=== PATIENT | male | born 1940 | race Caucasian/White ===

== ENCOUNTER 2016-09-25 18:05 | Inpatient (IN) | payer OTHER ==
[2016-09-25] MEDS ORDERED: NS 1,000 ML IV ONE (18:21)
--- NOTE | 2016-09-25 18:39 | EKG Report ---
Test Performed on : 09/25/2016 6:32:37 PM Test Reason : PREOP Blood Pressure : / mmHG Vent. Rate : 069 BPM Atrial Rate : 069 BPM P-R Int : 220 ms QRS Dur : 114 ms QT Int : 400 ms P-R-T Axes : 049 -37 052 degrees QTc Int : 428 ms Sinus rhythm. with 1st degree AV block. Left axis deviation Low voltage QRS Incomplete right bundle branch block Cannot rule out Anterior infarct , age undetermined Abnormal ECG When compared with ECG of 20-DEC-2014 08:30, Minimal criteria for Anterior infarct are now present Unconfirmed Result
[2016-09-25 18:52] LABS: MANUAL DIFF NEEDED? NO
[2016-09-25 18:58] LABS: BASO% 0.5 % (0.0-0.8); EOS# 0.09 X1000 (0.0-0.7); EOS% 1.1 % (0.0-10.0); HEMATOCRIT 40.4 % (42.0-52.0); IMM GRAN# 0.03 X1000 (0.0-0.04); IMM GRAN% 0.4 % (0.0-0.5); LYMPH# 1.75 X1000 (1.2-3.4); LYMPH% 20.6 % (20.5-51.1); MCH 28.9 PG (27-31); MCHC 34.7 g/dL (33-37); MCV 83.3 FL (81-99); MONO# 0.57 X1000 (0.11-0.59); MONO% 6.7 % (1.7-9.3); MPV 8.7 FL (7.4-10.4); NEUT% 70.7 % (42.2-75.2); PLT 218 X1000 (130-400); RBC 4.85 XMIL (4.7-6.1)
[2016-09-25] MEDS: ZOSYN 3.375 GM/NS 50 ML IV SCH ×2 (18:59→23:39)
[2016-09-25 19:18] LABS: HEMOGLOBIN A1C 5.3 % (4.8-6.0)
[2016-09-25 19:19] LABS: AGAP 11; ALBUMIN 4.3 g/dL (3.5-5.0); ALKALINE PHOSPHATASE 63 U/L (32-122); BUN 20 mg/dL (8-22); CALCIUM 9.3 mg/dL (8.8-10.2); CHLORIDE 103 mmol/L (98-107); COSMO 276; GOT 18 U/L (10-34); GPT 19 U/L (10-44); SODIUM 136 mmol/L (136-145); TCO2 22 mmol/L (25-35); TOTAL PROTEIN 7.2 g/dL (6.3-8.3)
[2016-09-25 20:26] LABS: SED RATE 24 mm/hr (0-15)
[2016-09-26] MEDS: ZOSYN 3.375 GM/NS 50 ML IV SCH ×3 (05:34→18:31)
--- NOTE | 2016-09-26 08:58 | Diag Imaging Result Document ---
PROCEDURE NAME: CHEST-2 VIEWS - 09/25/2016 TWO VIEWS OF THE CHEST: FINDINGS: There is a granuloma in the right costophrenic angle. There is some ill-defined opacity in the medial portion of the right lower lobe which may represent atelectasis or pneumonia. There are no previous studies available for comparison, however, and this may be a chronic finding. IMPRESSION: Questionable atelectasis in the medial right lower lobe.
[2016-09-26] MEDS ORDERED: DIPRIVAN 1% ONE (11:26)
[2016-09-26] MEDS ORDERED: FENTANYL ONE (11:26)
[2016-09-26] MEDS ORDERED: VERSED ONE (11:26)
--- NOTE | 2016-09-26 13:30 | HISTORY AND PHYSICAL ---
CHIEF COMPLAINT: Cellulitis right foot, failed outpatient treatment. HISTORY OF PRESENT ILLNESS: This is a 76-year-old male with a history of diabetes mellitus, hypertension, and hypothyroid who presented as a direct admit from Dr. Thakkar's office for cellulitis to his right lower extremity despite outpatient antibiotics and wound care per Dr. Thakkar. He does state that he has had some increase in swelling and redness. PAST MEDICAL HISTORY: Hypertension, hypothyroid, melanoma left arm status post chemotherapy in 2000, and BPH.. PAST SURGICAL HISTORY: Cholecystectomy, hemorrhoidectomy, excision of melanoma left arm. SOCIAL HISTORY: He denies alcohol, tobacco, or illicit drug use. He did quit smoking July 22. ALLERGIES: Nickel which causes hives and tape which causes blisters. HOME MEDICATIONS: A list will be obtained. REVIEW OF SYSTEMS: A 14-point review of systems is discussed with patient with pertinent positives being pain, swelling, redness, warmth to right foot. He denied chest pain, palpitations, syncope, dizziness, fever, chills, cough, any recent weight loss, weight gain, PND, orthopnea, nausea, vomiting, diarrhea, constipation, black or bloody vomitus, black or bloody stools, hematuria, dysuria, frequency, urgency. PHYSICAL EXAMINATION: GENERAL: This is a 76-year-old male who is sitting in the bed with no distress. VITAL SIGNS: Blood pressure is 136/63 with a heart rate of 65. Respirations are 18. Temperature is 98.2 degrees oral with room air saturations of 99%. HEENT: Head is normocephalic, atraumatic. Pupils equal, round, reactive to light. EOMs are intact. Sclerae anicteric. Mucous membranes are moist. NECK: Supple. Trachea midline. CARDIOVASCULAR: Regular rate and rhythm. S1, S2 appreciated. PULMONARY: Breath sounds are clear. No increased work of breathing noted. GASTROINTESTINAL: Abdomen is soft, nontender, nondistended with bowel sounds in all 4 quadrants. BACK: No CVAT. No spine tenderness. MUSCULOSKELETAL: Good range of motion of joints. EXTREMITIES: No clubbing, cyanosis, or edema to upper extremities and left lower extremity. Right lower extremity does have a dressing that is dry and intact. He does have reported redness and edema. Calves are nontender. SKIN: Warm and dry. ASSESSMENT: 1. Cellulitis, right foot. Failed outpatient treatment. 2. Hypothyroid. 3. Hypertension. 4. DVT prophylaxis. 5. GI prophylaxis. PLAN: He will be admitted to the hospital. We will obtain a CBC and CMP. We will identify and continue his home medications. We will start gentle IV hydration. We will start Zosyn q.[address] Thakkar with further instructions per hospital course and Dr. Thakkar's expertise. Dictated by HENRIK Regan for Kendrick Mccauley MD
[2016-09-26] MEDS ORDERED: LR 1,000 ML ONE (15:25)
[2016-09-26] MEDS ORDERED: HYDROGEN PEROXIDE SOLUTION ONE (15:26)
[2016-09-26] MEDS ORDERED: BACITRACIN ONE (15:26)
[2016-09-26] MEDS ORDERED: MARCAINE 0.5% ONE (15:26)
[2016-09-26] MEDS ORDERED: SODIUM CHLORIDE 0.9% 10 ML ONE (15:27)
[2016-09-26] MEDS ORDERED: EPHEDRINE ONE (16:19)
--- NOTE | 2016-09-26 16:29 | OPERATIVE NOTE ---
PROCEDURE DATE: 09/26/2016 PREOPERATIVE DIAGNOSIS: Infected right foot with cellulitis. POSTOPERATIVE DIAGNOSIS: Infected right foot with osteomyelitis of the 1st metatarsal head. PROCEDURE PERFORMED: Debridement of infected tissue and bone, right foot. SURGEON: Celio Thakkar DPM ANESTHESIA: General. HEMOSTASIS: Ankle tourniquet to 250 mmHg. PROCEDURE IN DETAIL: The patient was brought to operating room and placed on the table in a supine position. General anesthesia was then induced. The patient was then prepped and draped in the usual aseptic manner. The procedure was begun by examining the right foot and raising the ankle tourniquet to 250 mmHg. Two converging semi-elliptical incisions were used to excise the large ulcer on the medial aspect of the 1st metatarsophalangeal joint. This was then dissected down through the soft tissues and noted to entering into the 1st metatarsophalangeal joint, which was to be expected given the clinical signs preoperatively. The head of the 1st metatarsal, the articular surface actually looked fairly normal, although there was a deficit noted in the medial 1st metatarsal head, and a curette was used to remove a fair amount of soft cancellous bone within the 1st metatarsal head until good firm bone was obtained. The rest of the procedure involved removing any obviously infected and abnormal tissue. It should be noted there was no obvious pus noted throughout the procedures, just the drainage from the joint. We obtain cultures for C and S and Gram stain and also obtained some bony tissue for bone biopsy to confirm the osteomyelitis. The tourniquet was released. The wound was copiously irrigated with 3 liters of normal saline impregnated with bacitracin solution. The wound and the bone were packed with iodoform gauze, and a Betadine dressing was applied. Two retention sutures were placed in the distal and proximal aspect of the incision, and the wound was dressed. He tolerated the procedure and anesthesia well. He left the operating room with vital signs stable and CFT intact to the right foot, and he will be followed on the floor until discharge. Most likely, he will be return back to the operating room for closure.
[2016-09-26] MEDS ORDERED: ZOFRAN ONE (16:45)
[2016-09-26] MEDS ORDERED: XYLOCAINE-MPF 2% ONE (16:45)
[2016-09-27] MEDS: ZOSYN 3.375 GM/NS 50 ML IV SCH ×4 (01:20→17:57)
[2016-09-27 06:20] LABS: HEMATOCRIT 36.9 % (42.0-52.0); HEMOGLOBIN 12.3 g/dL (14.0-18.0); MCH 28.7 PG (27-31); MCHC 33.3 g/dL (33-37); MPV 9.1 FL (7.4-10.4); RBC 4.29 XMIL (4.7-6.1)
[2016-09-27] MEDS: PRILOSEC PO SCH (06:28)
[2016-09-27] MEDS: SYNTHROID PO SCH (06:28)
[2016-09-27 06:35] LABS: AGAP 8; BUN 17 mg/dL (8-22); CALCIUM 8.7 mg/dL (8.8-10.2); CHLORIDE 104 mmol/L (98-107); COSMO 276; POTASSIUM 4.4 mmol/L (3.5-5.1); SODIUM 137 mmol/L (136-145); TCO2 26 mmol/L (25-35)
--- NOTE | 2016-09-27 08:15 | PROGRESS NOTE ---
DATE: 09/27/2016 SUBJECTIVE: Patient notes that he is feeling better. He denies any current issues. States his pain is decently controlled. PHYSICAL EXAMINATION: Vital Signs: Temperature 99, pulse 65, respiratory rate 18, BP 136/58. General: Patient is a well developed, well nourished male who is currently in no respiratory distress. He is awake, alert, oriented. Neck: Supple. CV: Regular rate. Chest: Relatively clear. Abdomen: Soft. Extremities: Moves all extremities. Skin: He is noted to have a bandage on his right foot secondary to recent debridement of infected tissue and bone due to osteomyelitis of his first metatarsal head by Dr. Thakkar. LABS: CBC, and CMP essentially normal. Calcium at 8.7. ASSESSMENT: 1. Osteomyelitis of the first metatarsal head, right foot. 2. Hypothyroidism. 3. Hypertension. 4. Known history of benign prostatic hyperplasia. 5. No history of diabetes. PLAN: We will continue IV Zosyn. Continue to follow along with Dr. Thakkar and further orders as needed.
[2016-09-27] MEDS ORDERED: [UNRECOGNIZED DRUG - OTHER] PO SCH (09:00)
[2016-09-27] MEDS ORDERED: BENAZEPRIL PO SCH (09:00)
[2016-09-27] MEDS ORDERED: AMLODIPINE BESYLATE PO SCH (09:00)
[2016-09-27] MEDS: NORVASC PO SCH (09:22)
[2016-09-27] MEDS: LOTENSIN PO SCH (09:22)
[2016-09-27] MEDS: LOPRESSOR PO SCH (09:22)
[2016-09-27] MEDS ORDERED: NS 500 ML IV SCH (19:15)
[2016-09-28] MEDS: ZOSYN 3.375 GM/NS 50 ML IV SCH ×4 (01:02→18:26)
[2016-09-28 06:31] LABS: INR 1.09 (0.86-1.15); PROTIME 14.4 Seconds (12.1-15.5)
[2016-09-28] MEDS: PRILOSEC PO SCH (07:21)
[2016-09-28] MEDS: SYNTHROID PO SCH (07:22)
[2016-09-28] MEDS ORDERED: NS 500 ML ONE (07:22)
[2016-09-28] MEDS ORDERED: DIPRIVAN 1% ONE (08:55)
[2016-09-28] MEDS: LOPRESSOR PO SCH (09:01)
[2016-09-28] MEDS: LOTENSIN PO SCH (09:02)
[2016-09-28] MEDS: NORVASC PO SCH (09:02)
--- NOTE | 2016-09-28 09:03 | PROGRESS NOTE ---
DATE: 09/28/2016 SUBJECTIVE: The patient states he is feeling fine and does not have any real pain in his foot. Denies any fevers or chills. Denies any chest pain, GI or issues. OBJECTIVE: Vital Signs: Temp 98, pulse 68, respiratory 18, BP 124/58, satting 95% on room air. General: Patient well developed, well nourished. He is currently in no real respiratory distress. He is awake, alert, oriented. Neck: Supple. CV: Regular rate. Chest: Relatively clear. Abdomen: Soft. Extremities: Moves all extremities. His right lower extremity is still in a clean, dry, and intact bandage. ASSESSMENT: 1. Osteomyelitis, first metatarsal head, right foot. 2. Hypothyroidism. 3. Hypertension. 4. Known history of benign prostatic hyperplasia. PLAN: Patient currently is on IV Zosyn. Dr. Thakkar apparently is taking him back to the OR today to close up his wound, and hopefully will be discharged in the a.m. Patient's blood pressure has been mildly elevated, but this appears to be more related to pain. We will continue to follow.
--- NOTE | 2016-09-28 09:52 | Diag Imaging Result Document ---
PROCEDURE NAME: CHEST-PORTABLE - 09/28/2016 PORTABLE CHEST: TIME: 0832 hours. FINDINGS: There is a PICC line on the right with its time in the superior vena cava. The appearance of the chest has not changed significantly since the previous study of 09/25/2016. IMPRESSION: Stable chest.
[2016-09-28] MEDS ORDERED: BACITRACIN ONE (11:11)
[2016-09-28] MEDS ORDERED: CLAVE SECONDARY SET 11953 ONE (11:57)
[2016-09-28] MEDS ORDERED: LR 1,000 ML ONE (11:57)
[2016-09-28] MEDS ORDERED: EPHEDRINE ONE (12:22)
[2016-09-28] MEDS ORDERED: FENTANYL ONE (13:22)
--- NOTE | 2016-09-28 14:26 | OPERATIVE NOTE ---
PROCEDURE DATE: 09/28/2016 PREOPERATIVE DIAGNOSIS: Wound with underlying osteomyelitis 1st metatarsal right foot. POSTOPERATIVE DIAGNOSIS: Wound with underlying osteomyelitis 1st metatarsal right foot. PROCEDURE: Debridement of infected bone and tissue right foot with irrigation and complex wound closure right foot. SURGEON: Celio Thakkar DPM ANESTHESIA: General. HEMOSTASIS: Ankle tourniquet 250 mmHg. DESCRIPTION OF PROCEDURE: The patient was brought to the operating room, placed on table in supine position. General anesthesia was then induced. The patient was then prepped and draped in the usual aseptic manner. The procedure was begun by exsanguinating the right foot and raising the ankle tourniquet to 250 mmHg. We then used curved Grandin and Brown to remove any obviously nonviable or infected tissue of which there was very little. The wound looked very good. There was no pus, no odor, no real drainage. We curetted within the 1st metatarsal shaft to remove as much of the infected cancellous bone that was possible and then irrigated the wound and that bone copiously with 3 L of normal saline with impregnated bacitracin solution. We then closed the capsule with 2-0 Vicryl and the skin with 2-0 nylon. He received a sterile compressive dressing, left the operating room with vital signs stable, CFT intact to the right foot. It should be noted the tourniquet was released and hemostasis was achieved and CFT was immediate. He will be followed on the floor until discharge.
[2016-09-28] MEDS ORDERED: DECADRON ONE (17:05)
[2016-09-28] MEDS ORDERED: ZOFRAN ONE (17:05)
[2016-09-28] MEDS ORDERED: XYLOCAINE-MPF 2% ONE (17:05)
[2016-09-29] MEDS: ZOSYN 3.375 GM/NS 50 ML IV SCH ×5 (00:06→23:55)
[2016-09-29] MEDS: SYNTHROID PO SCH (06:02)
[2016-09-29] MEDS: PRILOSEC PO SCH (06:02)
[2016-09-29] MEDS: LOPRESSOR PO SCH (08:53)
[2016-09-29] MEDS: NORVASC PO SCH (08:53)
[2016-09-29] MEDS: LOTENSIN PO SCH (08:53)
--- NOTE | 2016-09-29 11:14 | PROGRESS NOTE ---
DATE: 09/29/2016 SUBJECTIVE: The patient notes he is feeling much better. He denies any pain in his foot. Denies any fevers, chills. Denies cough, congestion, GI or issues. OBJECTIVE: Vital Signs: On physical, temp 98, pulse 62, respiratory rate 18 and BP 137/60. General: Patient is well developed, well nourished. He is pleasant to talk with. HEENT: Normocephalic. Neck: Supple. CV: Regular rate. Chest: Clear. Abdomen: Soft. Extremities: Moves all extremities. His right foot has clean, dry and intact bandage. ASSESSMENT: 1. Osteomyelitis, first metatarsal head, right foot. 2. Hypothyroidism. 3. Hypertension. 4. Benign prostatic hyperplasia. PLAN: We will continue patient on IV Zosyn per Dr. Potter's instructions. He had a PICC line placed yesterday in anticipation of going home with IV antibiotics. Currently, he has a routine culture that is still requiring further intubation. Hopefully, this will return and we can improve his antibiotic choice.
[2016-09-30] MEDS: ZOSYN 3.375 GM/NS 50 ML IV SCH ×2 (05:52→12:20)
[2016-09-30] MEDS: SYNTHROID PO SCH ×2 (05:55→06:00)
[2016-09-30] MEDS: PRILOSEC PO SCH ×2 (05:55→06:00)
[2016-09-30 08:59] VITALS: BP 140/57
[2016-09-30] MEDS: NORVASC PO SCH (09:22)
[2016-09-30] MEDS: LOTENSIN PO SCH (09:22)
[2016-09-30] MEDS: LOPRESSOR PO SCH (09:22)
--- NOTE | 2016-10-01 06:46 | DISCHARGE SUMMARY ---
ADMISSION DATE: 09/25/2016 DISCHARGE DATE: 09/30/2016 DIAGNOSES: 1. Cellulitis, right foot. Failed outpatient treatment. 2. Status post debridement of infected tissue and bone right foot 09/26/2016. 3. Hypertension. DIAGNOSTICS: 1. 09/25/2016 chest x-ray- Questionable atelectasis medial right lower lobe. 2. Chest x-ray 09/28/2016 revealed a stable chest. 3. 09/26/2016- debridement of infected tissue and bone right foot. 4. Microbiology. Right foot culture revealed Staphylococcal Simulans. HOSPITAL COURSE: Mr. Singh is a 76-year-old gentleman with a history of diabetes mellitus, hypertension, hypothyroid who was admitted for failed outpatient treatment of cellulitis to his right foot. He underwent surgery with drainage of this area per Dr. Thakkar who has continued care with his antibiotics and wound care and dressing changes during the hospitalization. He has done fine with labs remaining stable. Vital signs stable. He was seen by physical therapy for evaluation for home care with partial weightbearing in a walker; the patient did well. IV therapy has been set up with [facility] per Dr. Thakkar, as has home health and wound care. DISCHARGE ASSESSMENT: Cardiovascular: Regular rate and rhythm S1, S2 appreciated. Pulmonary: Breath sounds are clear. No increased work of breathing noted. Gastrointestinal: Abdomen is soft, nontender, nondistended. Bowel sounds in all 4 quadrants. Extremities: No clubbing, cyanosis, or edema to left lower extremity or upper extremities. Right lower extremity has a dressing that is dry and intact. Neurologic: He is alert and oriented x3. DISCHARGE MEDICATIONS: 1. Lopressor 50 mg daily. 2. Amlodipine. 3. Benazepril 10/40 daily. 4. Synthroid 88 mcg daily. 5. Antibiotics home infusion per Dr. Thakkar's orders with [facility]. DISCHARGE VITAL SIGNS: Blood pressure is 140/57 with a heart rate of 65, respirations are 18. Temperature is 98.4 degrees oral with a room air saturation of 98%. DISCHARGE DIET: Diabetic. DISCHARGE ACTIVITY: As per Dr. Thakkar's instructions. He is being discharged home in stable condition with family members. TIME SPENT: This is a greater than 30 minute discharge. Dictated by HENRIK Regan for Kendrick Mccauley MD
== END 2016-09-30 14:45 | disposition home health service (06) | DRG 629 ==
LOC: P.MEDSURG 18:05 → OBSVTOIN 18:05
PROVIDERS: ADMIT Family Medicine; ATTEND Family Medicine
PROC: 0QBN0ZZ Excision of Right Metatarsal, Open Approach (ICD-10-PCS; principal; 2016-09-26 15:28)
PROC: 02HV33Z Insertion of Infusion Device into Superior Vena Cava, Percutaneous Approach (ICD-10-PCS; 2016-09-28)
PROC: 0QBN0ZZ Excision of Right Metatarsal, Open Approach (ICD-10-PCS; 2016-09-28 12:03)
DX: E11.69 Type 2 diabetes mellitus with other specified complication (principal); M86.171 Other acute osteomyelitis, right ankle and foot; E11.42 Type 2 diabetes mellitus with diabetic polyneuropathy; E11.621 Type 2 diabetes mellitus with foot ulcer; L03.115 Cellulitis of right lower limb; B95.7 Other staphylococcus as the cause of diseases classified elsewhere; L97.519 Non-pressure chronic ulcer of other part of right foot with unspecified severity; I10 Essential (primary) hypertension; E03.9 Hypothyroidism, unspecified; N40.0 Benign prostatic hyperplasia without lower urinary tract symptoms; K21.9 Gastro-esophageal reflux disease without esophagitis; Z85.820 Personal history of malignant melanoma of skin; Z92.21 Personal history of antineoplastic chemotherapy; Z87.891 Personal history of nicotine dependence; Z79.899 Other long term (current) drug therapy
CPT/HCPCS: 36415; 36569; 71010; 71020; 80048; 80053; 83036; 85025; 85027; 85610; 85651; 86140; 87070; 87075; 87077; 87186; 87205; 93005; J1100; J2250; J2405; J2543; J3010; J7030; J7040; J7120; S0020